=== PATIENT | male | born 1980 | race Asian ===

== ENCOUNTER 2020-09-24 21:13 | Inpatient (IN) | payer MEDICAID, OTHER, SELFPAY ==
[~2020-09-24] VITALS: Ht 170.2 cm; Wt 85.5 kg
[2020-09-24] MEDS ORDERED: ACETAMINOPHEN 500 MG TABLET ONE (21:28)
[2020-09-24] MEDS ORDERED: SODIUM CHLORIDE 0.9% 1,000ML IVBOLUS ONE (21:30)
[2020-09-24] MEDS ORDERED: ONDANSETRON 2MG/ML, 2ML ONE (21:39)
--- NOTE | 2020-09-24 21:52 | NUR ---
PT BIB EMS. PT WORKS FOR [employer] AND THEY HAVE ABOUT 7 PEOPLE POSITIVE FOR COVID. PT TESTED POSITIVE 10 DAYS AGO, WAS QUARENTINING AT HOME AND TODAY WAS HAVING INCREASED SOB, AND PER EMS PT 82 PERCENT ON RA, AND ON 4L NOW. PT RECIEVED 100 ML OF NS EN ROUTE. PT PLACED IN GOWN, MEDICATED PER EMAR FOR NAUSEA AND FEVER, CXR TAKEN, LABS AND BLOOD CULTURES DRAWN, EKG DONE, ALL MONITORS IN PLACE.
[2020-09-24 21:54] LABS: BASOPHILS % (AUTO) 0 % (0-1); EOSINOPHILS % (AUTO) 0 % (1-7); LYMPHOCYTES % (AUTO) 9 % (22-44); MEAN CORPUSCULAR HEMOGLOBIN 28.3 pg (27.5-34.5); MEAN CORPUSCULAR HGB CONC 33.9 g/dL (33.2-36.2); MEAN PLATELET VOLUME 8.3 fL (7.4-10.4); MONOCYTES % (AUTO) 4 % (2-9); NEUTROPHILS % (AUTO) 87 % (42-75); PLATELET COUNT 273 x10^3/uL (130-400); RED BLOOD COUNT 5.36 x10^6/uL (4.38-5.82); RED CELL DISTRIBUTION WIDTH 13.3 % (9.4-14.8)
[2020-09-24] MEDS ORDERED: CEFTRIAXONE PMX 1GM/50ML 50 ML ONE (21:54)
[2020-09-24] MEDS ORDERED: ACETAMINOPHEN 500 MG TABLET PO ONE (22:00)
[2020-09-24] MEDS ORDERED: CEFTRIAXONE PMX 1GM/50ML 50 ML IVPB ONE (22:00)
[2020-09-24] MEDS ORDERED: AZITHROMYCIN 500 MG in SODIUM CHLORIDE 0.9% 250 ML IVPB ONE (22:00)
[2020-09-24] MEDS ORDERED: ONDANSETRON 2MG/ML, 2ML IVPush ONE (22:00)
--- NOTE | 2020-09-24 22:01 | NUR ---
ABX HUNG AFTER BLOOD CULTURES
[2020-09-24 22:02] LABS: ALANINE AMINOTRANSFERASE 86 U/L (12-78); ALBUMIN 2.7 g/dL (3.4-5.0); ANION GAP 9 mmol/L (5-15); CHLORIDE 101 mmol/L (98-107); CREATININE 0.96 mg/dL (0.7-1.3)
[2020-09-24 22:19] LABS: ALKALINE PHOSPHATASE 65 U/L (45-117); BILIRUBIN,TOTAL 0.9 mg/dL (0.2-1.0); TOTAL PROTEIN 7.3 g/dL (6.4-8.2); TROPONIN I < 0.015 ng/mL (0.000-0.045)
--- NOTE | 2020-09-24 22:34 | NUR ---
HOSPITALIST AT BEDSIDE
[2020-09-24 22:38] LABS: D-DIMER (DIC) 1.42 ug/mlFEU (0.00-0.52); PROTIME 10.7 Seconds (9.6-11.5)
[2020-09-24] MEDS ORDERED: DEXAMETHASONE 4 MG/ML, 1ML IVPush ONE (23:00)
[2020-09-24] MEDS ORDERED: CEFTRIAXONE PMX 1GM/50ML 50 ML IV ONE (23:00)
[2020-09-24] MEDS ORDERED: DEXAMETHASONE 4 MG/ML, 5ML ONE (23:00)
[2020-09-24] MEDS ORDERED: OXYcodone IR 5MG TABLET PO PRN (23:30)
[2020-09-24] MEDS ORDERED: ENALAPRILAT 1.25 MG/ML, 2ML IVPush PRN (23:30)
[2020-09-24] MEDS ORDERED: PHARMACY MAY ADJ FOR RENAL FX MC PRN (23:30)
[2020-09-24] MEDS ORDERED: IBUPROFEN 600 MG TABLET PO PRN (23:30)
[2020-09-24] MEDS ORDERED: MELATONIN 5 MG TABLET PO PRN (23:30)
[2020-09-24] MEDS ORDERED: ENOXAPARIN 40 MG/0.4 ML SQ SCH (23:30)
[2020-09-24] MEDS ORDERED: LIDODERM 5% PATCH TD PRN (23:30)
[2020-09-24] MEDS ORDERED: LACTATED RINGERS 1,000 ML IV SCH (23:30)
[2020-09-24] MEDS ORDERED: DOCUSATE 100 MG CAPSULE PO PRN (23:30)
[2020-09-24 23:34] LABS: MD NO
[2020-09-25] MEDS: ASCORBIC ACID 500 MG TABLET PO SCH ×3 (00:04→20:53)
[2020-09-25 00:26] LABS: TROPONIN I < 0.015 ng/mL (0.000-0.045)
[2020-09-25] MEDS ORDERED: CEFTRIAXONE PMX 1GM/50ML 50 ML ONE (00:58)
[2020-09-25] MEDS ORDERED: ENOXAPARIN 60 MG/0.6 ML ONE (00:58)
[2020-09-25] MEDS ORDERED: CHOLECALCIFEROL 5,000u TAB ONE ×2 (00:58→07:42)
[2020-09-25] MEDS: CHOLECALCIFEROL (VITAMIN D3) 5000 IU CAP PO SCH ×2 (01:05→07:58)
--- NOTE | 2020-09-25 03:03 | NUR ---
RESPIRATORY SET PATIENT UP ON OPTIFLOW 50% AT 50L/MIN BECAUSE OF PT'S HIGH RESPIRATORY RATE. RR HAS DROPPED DOWN TO 17, PT MORE COMFORTABLE.
--- NOTE | 2020-09-25 03:39 | NUR ---
PT SWITCHED OVER TO HOSPITAL BED AND PROVIDED URINAL
[2020-09-25] MEDS ORDERED: IBUPROFEN 600 MG TABLET ONE (03:46)
--- NOTE | 2020-09-25 03:49 | NUR ---
PT REQUESTED MOTRIN, PT MEDICATED PER EMAR, STATES NO OTHER NEEDS AT THIS TIME.
[2020-09-25 04:55] LABS: ALBUMIN 2.5 g/dL (3.4-5.0); ANION GAP 5 mmol/L (5-15); CALCIUM 7.8 mg/dL (8.5-10.1); CHLORIDE 105 mmol/L (98-107)
[2020-09-25 05:00] LABS: BASOPHILS % (AUTO) 0 % (0-1); EOSINOPHILS % (AUTO) 0 % (1-7); LYMPHOCYTES % (AUTO) 8 % (22-44); MEAN CORPUSCULAR HEMOGLOBIN 28.5 pg (27.5-34.5); MEAN CORPUSCULAR HGB CONC 34.3 g/dL (33.2-36.2); MEAN PLATELET VOLUME 8.5 fL (7.4-10.4); MONOCYTES % (AUTO) 5 % (2-9); NEUTROPHILS % (AUTO) 87 % (42-75); PLATELET COUNT 276 x10^3/uL (130-400); RED BLOOD COUNT 5.08 x10^6/uL (4.38-5.82); RED CELL DISTRIBUTION WIDTH 13.3 % (9.4-14.8)
[2020-09-25 05:06] LABS: HCT (SEDRATE) 42.3 % (39.2-51.8); MD NO
[2020-09-25 05:14] LABS: ALANINE AMINOTRANSFERASE 76 U/L (12-78); ALKALINE PHOSPHATASE 63 U/L (45-117); BILIRUBIN,TOTAL 0.7 mg/dL (0.2-1.0); CREATINE KINASE, TOTAL 1778 U/L (39-308); CREATININE 0.83 mg/dL (0.7-1.3); TOTAL PROTEIN 6.9 g/dL (6.4-8.2); TROPONIN I < 0.015 ng/mL (0.000-0.045)
--- NOTE | 2020-09-25 05:46 | NUR ---
PT SPILLED SOME URINE ON BED SHEETS, NEW BED SHEETS PLACED AND CLOTHES PLACED IN BELONGINGS BAG PER REQUEST.
--- NOTE | 2020-09-25 07:00 | NUR ---
REPORT FROM DEN[facility]
[2020-09-25] MEDS ORDERED: ACETAMINOPHEN 325 MG TABLET PO PRN (07:30)
[2020-09-25] MEDS ORDERED: DEXAMETHASONE 1 MG TABLET PO SCH ×2 (07:30→09:00)
[2020-09-25] MEDS ORDERED: OXYcodone IR 5MG TABLET PO PRN (07:30)
[2020-09-25] MEDS ORDERED: THIAMINE 100MG TABLET ONE (07:41)
[2020-09-25] MEDS ORDERED: DEXAMETHASONE 4 MG TABLET ONE (07:41)
[2020-09-25] MEDS ORDERED: ZINC SULFATE 220 MG CAPSULE ONE (07:42)
[2020-09-25] MEDS ORDERED: ASCORBIC ACID 500 MG TABLET ONE ×2 (07:42)
[2020-09-25] MEDS: ZINC SULFATE 220 MG CAPSULE PO SCH (07:57)
[2020-09-25] MEDS: THIAMINE 100MG TABLET PO SCH (07:58)
--- NOTE | 2020-09-25 08:06 | NUR ---
PT RESTING, FEELS COMFORTABLE. RESP EVEN AND UNLABORED ON OPTI FLOW. MEDICATED PER EMAR. NO REQUESTS AT THIS TIME, VSS.
--- NOTE | 2020-09-25 09:00 | NUR ---
PT RESTING COMFORTABLE, MEAL TRAY GIVEN
--- NOTE | 2020-09-25 10:53 | NUR ---
PT RESTING, VSS, CALL LIGHT IN REACH
[2020-09-25] MEDS ORDERED: ENOXAPARIN 80 MG/0.8 ML ONE (12:09)
[2020-09-25] MEDS: ENOXAPARIN 80 MG/0.8 ML SQ SCH ×2 (12:14→23:51)
--- NOTE | 2020-09-25 12:28 | NUR ---
GIVEN MEAL TRAY. PT RESTING, IVF,
--- NOTE | 2020-09-25 13:29 | NUR ---
REPORT TO GABRIELA
[2020-09-25] MEDS ORDERED: REMDESIVIR 200 MG in SODIUM CHLORIDE 0.9% 250 ML IVPB ONE (15:30)
[2020-09-25 16:50] LABS: RAPID INFLUENZA A Negative (Negative); RAPID INFLUENZA B Negative (Negative)
[2020-09-25 20:44] VITALS: BP 113/75
[2020-09-25] MEDS: CEFTRIAXONE PMX 2GM/50ML 50 ML IVPB SCH (22:43)
[2020-09-25] MEDS: LACTATED RINGERS 1,000 ML IV SCH (23:51)
[2020-09-26 01:56] VITALS: BP 126/79
[2020-09-26 05:39] LABS: BASOPHILS % (AUTO) 0 % (0-1); EOSINOPHILS % (AUTO) 0 % (1-7); LYMPHOCYTES % (AUTO) 12 % (22-44); MEAN CORPUSCULAR HGB CONC 33.5 g/dL (33.2-36.2); MEAN PLATELET VOLUME 8.5 fL (7.4-10.4); MONOCYTES % (AUTO) 8 % (2-9); NEUTROPHILS % (AUTO) 80 % (42-75); PLATELET COUNT 342 x10^3/uL (130-400); RED BLOOD COUNT 5.08 x10^6/uL (4.38-5.82); RED CELL DISTRIBUTION WIDTH 13.4 % (9.4-14.8)
[2020-09-26 05:40] LABS: ALANINE AMINOTRANSFERASE 58 U/L (12-78); ALBUMIN 2.3 g/dL (3.4-5.0); ANION GAP 7 mmol/L (5-15); CALCIUM 8.1 mg/dL (8.5-10.1); CHLORIDE 108 mmol/L (98-107); CREATININE 0.77 mg/dL (0.7-1.3)
[2020-09-26 05:42] LABS: INTERNATIONAL NORMALIZED RATIO 1.05 (0.93-1.1); PROTHROMBIN TIME 11.1 Seconds (9.6-11.5)
[2020-09-26 06:01] LABS: ALKALINE PHOSPHATASE 55 U/L (45-117); BILIRUBIN,TOTAL 0.4 mg/dL (0.2-1.0); CREATINE KINASE, TOTAL 791 U/L (39-308); TOTAL PROTEIN 6.4 g/dL (6.4-8.2)
[2020-09-26 06:03] LABS: MD NO
[2020-09-26 06:30] LABS: HCT (SEDRATE) 42.5 % (39.2-51.8)
[2020-09-26 07:05] VITALS: BP 112/72
[2020-09-26] MEDS: ZINC SULFATE 220 MG CAPSULE PO SCH (07:29)
[2020-09-26] MEDS: ASCORBIC ACID 500 MG TABLET PO SCH ×2 (07:29→19:28)
[2020-09-26] MEDS: THIAMINE 100MG TABLET PO SCH (07:29)
[2020-09-26] MEDS ORDERED: OXYcodone IR 5MG TABLET PO PRN (08:30)
[2020-09-26] MEDS: CHOLECALCIFEROL (VITAMIN D3) 5000 IU CAP PO SCH (09:00)
[2020-09-26] MEDS ORDERED: DEXAMETHASONE 4 MG TABLET PO SCH (09:00)
[2020-09-26 09:18] LABS: FIO2 67 %
[2020-09-26 12:13] VITALS: BP 118/70
[2020-09-26] MEDS: REMDESIVIR 100 MG in SODIUM CHLORIDE 0.9% 250 ML IVPB SCH (16:07)
[2020-09-26] MEDS: ENOXAPARIN 80 MG/0.8 ML SQ SCH ×2 (16:07→22:56)
[2020-09-26] MEDS: LACTATED RINGERS 1,000 ML IV SCH (19:28)
[2020-09-26 19:55] VITALS: BP 110/62
[2020-09-26] MEDS: CEFTRIAXONE PMX 2GM/50ML 50 ML IVPB SCH (22:56)
[2020-09-27 00:41] VITALS: BP 117/78
[2020-09-27 05:44] LABS: BASOPHILS % (AUTO) 0 % (0-1); EOSINOPHILS % (AUTO) 0 % (1-7); LYMPHOCYTES % (AUTO) 9 % (22-44); MEAN CORPUSCULAR HEMOGLOBIN 28.2 pg (27.5-34.5); MEAN CORPUSCULAR HGB CONC 33.7 g/dL (33.2-36.2); MONOCYTES % (AUTO) 5 % (2-9); NEUTROPHILS % (AUTO) 86 % (42-75); PLATELET COUNT 408 x10^3/uL (130-400); RED BLOOD COUNT 5.08 x10^6/uL (4.38-5.82); RED CELL DISTRIBUTION WIDTH 13.4 % (9.4-14.8)
[2020-09-27 06:06] LABS: CHLORIDE 110 mmol/L (98-107)
[2020-09-27 06:17] LABS: ALANINE AMINOTRANSFERASE 61 U/L (12-78); ALBUMIN 2.4 g/dL (3.4-5.0); ALKALINE PHOSPHATASE 58 U/L (45-117); ANION GAP 6 mmol/L (5-15); BILIRUBIN,TOTAL 0.4 mg/dL (0.2-1.0); CALCIUM 8.2 mg/dL (8.5-10.1); CREATINE KINASE, TOTAL 291 U/L (39-308); CREATININE 0.81 mg/dL (0.7-1.3); TOTAL PROTEIN 6.4 g/dL (6.4-8.2)
[2020-09-27 06:24] LABS: HCT (SEDRATE) 42.4 % (39.2-51.8); MD NO
[2020-09-27 07:39] VITALS: BP 119/65
[2020-09-27] MEDS: ZINC SULFATE 220 MG CAPSULE PO SCH ×2 (08:31→12:25)
[2020-09-27] MEDS: CHOLECALCIFEROL (VITAMIN D3) 5000 IU CAP PO SCH ×2 (08:32→09:00)
[2020-09-27] MEDS: THIAMINE 100MG TABLET PO SCH ×2 (08:32→12:24)
[2020-09-27] MEDS: ASCORBIC ACID 500 MG TABLET PO SCH ×3 (08:32→20:47)
[2020-09-27] MEDS: POTASSIUM CHLORIDE 20 MEQ TAB.ER.PRT PO ONE ×2 (08:32→12:25)
[2020-09-27] MEDS: LACTATED RINGERS 1,000 ML IV SCH (08:33)
[2020-09-27] MEDS ORDERED: DEXAMETHASONE 4 MG TABLET PO SCH (09:00)
[2020-09-27] MEDS ORDERED: ONDANSETRON 2MG/ML, 2ML IVPush PRN (09:00)
[2020-09-27] MEDS ORDERED: DEXAMETHASONE 1 MG TABLET PO SCH (09:00)
[2020-09-27] MEDS ORDERED: ONDANSETRON 4 MG TABLET PO PRN (09:00)
[2020-09-27 12:10] VITALS: BP 107/72
[2020-09-27] MEDS: ENOXAPARIN 80 MG/0.8 ML SQ SCH ×2 (12:24→23:07)
[2020-09-27] MEDS: REMDESIVIR 100 MG in SODIUM CHLORIDE 0.9% 250 ML IVPB SCH (16:22)
[2020-09-27 19:40] VITALS: BP 119/76
[2020-09-27] MEDS: CEFTRIAXONE PMX 2GM/50ML 50 ML IVPB SCH (23:06)
[2020-09-28 01:47] VITALS: BP 121/82
[2020-09-28 05:53] LABS: HCT (SEDRATE) 43.8 % (39.2-51.8)
[2020-09-28 05:54] LABS: ALBUMIN 2.5 g/dL (3.4-5.0); ANION GAP 6 mmol/L (5-15); BASOPHILS % (AUTO) 0 % (0-1); CALCIUM 8.3 mg/dL (8.5-10.1); CHLORIDE 106 mmol/L (98-107); EOSINOPHILS % (AUTO) 0 % (1-7); LYMPHOCYTES % (AUTO) 15 % (22-44); MEAN CORPUSCULAR HEMOGLOBIN 28.3 pg (27.5-34.5); MEAN CORPUSCULAR HGB CONC 33.5 g/dL (33.2-36.2); MONOCYTES % (AUTO) 6 % (2-9); NEUTROPHILS % (AUTO) 79 % (42-75); PLATELET COUNT 421 x10^3/uL (130-400); RED BLOOD COUNT 5.21 x10^6/uL (4.38-5.82); RED CELL DISTRIBUTION WIDTH 13.5 % (9.4-14.8)
[2020-09-28 06:01] LABS: MD NO
[2020-09-28 06:03] LABS: ALANINE AMINOTRANSFERASE 147 U/L (12-78); ALKALINE PHOSPHATASE 66 U/L (45-117); BILIRUBIN,TOTAL 0.6 mg/dL (0.2-1.0); C-REACTIVE PROTEIN, QUANT 6.47 mg/dL (0.02-0.49); CREATINE KINASE, TOTAL 166 U/L (39-308); CREATININE 0.78 mg/dL (0.7-1.3); TOTAL PROTEIN 6.7 g/dL (6.4-8.2)
[2020-09-28 08:28] VITALS: BP 110/70
[2020-09-28] MEDS: CHOLECALCIFEROL (VITAMIN D3) 5000 IU CAP PO SCH (09:25)
[2020-09-28] MEDS: ASCORBIC ACID 500 MG TABLET PO SCH ×2 (09:25→20:28)
[2020-09-28] MEDS: THIAMINE 100MG TABLET PO SCH (09:25)
[2020-09-28] MEDS: ZINC SULFATE 220 MG CAPSULE PO SCH (09:26)
[2020-09-28] MEDS: DEXAMETHASONE 1 MG TABLET PO SCH (09:26)
[2020-09-28] MEDS: ENOXAPARIN 80 MG/0.8 ML SQ SCH ×2 (12:01→23:00)
[2020-09-28 12:46] VITALS: BP 110/70
[2020-09-28] MEDS: LACTATED RINGERS 1,000 ML IV SCH (16:34)
[2020-09-28] MEDS: REMDESIVIR 100 MG in SODIUM CHLORIDE 0.9% 250 ML IVPB SCH (16:34)
[2020-09-28 20:36] VITALS: BP 114/73
[2020-09-28] MEDS: CEFTRIAXONE PMX 2GM/50ML 50 ML IVPB SCH (23:00)
[2020-09-29 01:02] VITALS: BP 117/79
[2020-09-29] MEDS: LACTATED RINGERS 1,000 ML IV SCH (02:31)
[2020-09-29 05:38] LABS: BASOPHILS % (AUTO) 0 % (0-1); EOSINOPHILS % (AUTO) 1 % (1-7); LYMPHOCYTES % (AUTO) 22 % (22-44); MEAN CORPUSCULAR HEMOGLOBIN 28.2 pg (27.5-34.5); MEAN CORPUSCULAR HGB CONC 33.4 g/dL (33.2-36.2); MEAN PLATELET VOLUME 7.8 fL (7.4-10.4); MONOCYTES % (AUTO) 8 % (2-9); NEUTROPHILS % (AUTO) 68 % (42-75); PLATELET COUNT 493 x10^3/uL (130-400); RED BLOOD COUNT 5.29 x10^6/uL (4.38-5.82); RED CELL DISTRIBUTION WIDTH 13.5 % (9.4-14.8)
[2020-09-29 05:43] LABS: HCT (SEDRATE) 44.6 % (39.2-51.8)
[2020-09-29 05:52] LABS: ALBUMIN 2.5 g/dL (3.4-5.0); ANION GAP 3 mmol/L (5-15); CALCIUM 8.7 mg/dL (8.5-10.1); CHLORIDE 107 mmol/L (98-107)
[2020-09-29 06:03] LABS: ALANINE AMINOTRANSFERASE 198 U/L (12-78); ALKALINE PHOSPHATASE 64 U/L (45-117); BILIRUBIN,TOTAL 0.5 mg/dL (0.2-1.0); CREATINE KINASE, TOTAL 76 U/L (39-308); CREATININE 0.92 mg/dL (0.7-1.3); TOTAL PROTEIN 6.9 g/dL (6.4-8.2)
[2020-09-29 06:17] LABS: MD SCAN
[2020-09-29 07:32] VITALS: BP 123/81
[2020-09-29] MEDS: CHOLECALCIFEROL (VITAMIN D3) 5000 IU CAP PO SCH (09:00)
[2020-09-29] MEDS: ZINC SULFATE 220 MG CAPSULE PO SCH (09:02)
[2020-09-29] MEDS: THIAMINE 100MG TABLET PO SCH (09:02)
[2020-09-29] MEDS: ASCORBIC ACID 500 MG TABLET PO SCH (09:03)
[2020-09-29] MEDS: DEXAMETHASONE 1 MG TABLET PO SCH (09:03)
[2020-09-29] MEDS: ENOXAPARIN 80 MG/0.8 ML SQ SCH (11:30)
[2020-09-29 12:02] VITALS: BP 116/80
[2020-09-29] MEDS ORDERED: ZINC220C7 PO (14:38)
[2020-09-29] MEDS ORDERED: CHOL500051 PO (14:38)
[2020-09-29] MEDS ORDERED: ASCO500T9 PO (14:38)
[2020-09-29] MEDS ORDERED: AMOX-291 PO (14:38)
[2020-09-29] MEDS ORDERED: PRED5TAB PO (14:38)
[2020-09-29] MEDS ORDERED: DOXY100C2 PO (14:38)
[2020-09-29] MEDS: REMDESIVIR 100 MG in SODIUM CHLORIDE 0.9% 250 ML IVPB SCH (15:46)
[2020-09-29] MEDS ORDERED: CEFD300C37 PO (17:51)
[2020-09-29] MEDS ORDERED: DOXYCYCLINE 100MG CAP PO SCH (21:00)
[2020-09-29] MEDS ORDERED: AMOXICILLIN 500 MG CAPSULE PO SCH (21:00)
== END 2020-09-29 18:10 | disposition home or self-care (01) | DRG 871 ==
LOC: ED 22:21 → EDIP 09-25 00:28 → 4EST 09-25 14:04
PROVIDERS: ADMIT Family Medicine; ATTEND Internal Medicine
PROC: XW033E5 Introduction of Remdesivir Anti-infective into Peripheral Vein, Percutaneous Approach, New Technology Group 5 (ICD-10-PCS; principal; 2020-09-26)
DX: A41.89 Other specified sepsis (principal); J12.89 Other viral pneumonia; J96.01 Acute respiratory failure with hypoxia; U07.1 COVID-19; E87.1 Hypo-osmolality and hyponatremia; J90 Pleural effusion, not elsewhere classified; J93.9 Pneumothorax, unspecified; M62.82 Rhabdomyolysis; E66.9 Obesity, unspecified; Z68.29 Body mass index [BMI] 29.0-29.9, adult; E83.51 Hypocalcemia; E87.6 Hypokalemia; G47.00 Insomnia, unspecified; R65.20 Severe sepsis without septic shock; Z83.3 Family history of diabetes mellitus
CPT/HCPCS: 36415; 36600; 71045; 80053; 82330; 82550; 82728; 82803; 83605; 83615; 83735; 83880; 84145; 84484; 85025; 85049; 85379; 85384; 85610; 85651; 85730; 86140; 87040; 87400; 93005; G0378; J0456; J0696; J1100; J1650; J2405; J7030; J7050; J7120